=== PATIENT | male | born 1995 | race Caucasian/White ===

== ENCOUNTER 2016-08-08 21:39 | Emergency (ER) | payer OTHER ==
[2016-08-08 21:43] VITALS: TEMP 97.7
[2016-08-08] MEDS ORDERED: VANCOMYCIN HCL/NORMAL SALINE 250 ML IV ONE (21:51)
[2016-08-08] MEDS ORDERED: CEPHALEXIN 500 MG CAP PO ONE (21:52)
--- NOTE | 2016-08-08 21:55 | EDPHY ---
H & P Time Seen by Provider: 08/08/16 21:51 HPI/ROS: HPI:21-year-old male presents to emergency department with chief concern bilateral flank pain. Reports sudden onset of 4/10 bilateral flank pain. No aggravating or alleviating factors. Denies fever, chills, myalgias, shortness of breath, chest pain, nausea, vomiting, diarrhea, urinary symptoms, STI for history of STI, unusual penile discharge or burning. He skis and climbs. He climbed yesterday. He hiked the day before. no personal or family history of kidney stones. ROS:10 point review of systems is negative other than as stated in HPI Past Medical/Surgical History: Denies Social History: lives in [place], works for a [employer] Smoking Status: Never smoked Physical Exam: Vital signs stable, reviewed by me General: Awake, alert, calm, cooperative. No acute distress. Head: Normalocephalic. Atraumatic. EENT: PERRLA. EOMI. No pallor or injection. Anicteric. No nystagmus. No injection. Neck: Supple, nontender. No lymphadenopathy. Full range of motion. No meningismus. Respiratory: Breathing unlabored. Breath sounds equal bilaterally and clear to auscultation. No adventitious sounds. CV: Chest nontender, atraumatic. Heart rate regular. No murmur, distal pulses 2+ bilaterally. Brisk cap refill all extremities. GI: Abdomen soft, nontender. Bowel sounds normoactive and positive x4 quadrants. : No suprapubic tenderness. No CVA tenderness. Positive bilateral low flank pain. Neuro: Alert. Oriented x 3. Speech clear. Nonfocal cranial nerves throughout. Sensation intact all extremities. Skin: Skin warm, dry, intact. No rashes, abrasions, or lacerations. Skin turgor normal. Extremities: Full range of motion in all 4 extremities. Strength 5+ all extremities. Constitutional: Initial Vital Signs Temperature (C) 36.5 C 08/08/16 21:40 Heart Rate 86 08/08/16 21:40 Respiratory Rate 16 08/08/16 21:40 Blood Pressure 147/86 H 08/08/16 21:40 O2 Sat (%) 96 08/08/16 21:40 O2 Delivery Mode Room Air Allergies/Adverse Reactions: dae Allergy (Verified 08/08/16 21:40) Medical Decision Making - Diagnostics Imaging: CT Abdomen and Pelvis (Without Contrast) at 2257 hours History: Bilateral flank pain. Technique: Spiral images were acquired from the upper abdomen through the pelvis without intravenous or oral contrast which limits the study. Dose reduction techniques were utilized. Findings: Abdomen: Bilateral kidneys demonstrate no nephrolithiasis or hydronephrosis. Large amount of stool throughout the ascending and transverse colon and moderate stool in the rectosigmoid colon consistent with constipation. No hepatosplenomegaly or ascites. No pneumoperitoneum. Limited due to lack of oral and IV contrast. No small bowel distention. No lumbar compression fractures. Pelvis: No evidence of distal ureteral calculi, hydroureter or bladder calculi. Impression: 1. No nephrolithiasis or hydronephrosis. 2. Constipation. ED Course/Re-evaluation: 21-year-old gentleman presents to emergency department with bilateral low flank pain that onset yesterday. He has no urinary symptoms. He is just getting over a 5 day bout of flu. Urinalysis negative for evidence of infection or hematuria. CT abdomen pelvis to rule out perinephric abscess ordered as this patient is white count 12531. 2115: CT abdomen pelvis is negative for anything acute. Will have this patient follow up with primary care tomorrow for recheck. Differential Diagnosis: Differential diagnosis includes but is not limited to pyelonephritis, kidney stone, pneumonia, musculoskeletal discomfort - Data Points Laboratory Results: Laboratory Results 08/08/16 21:56 08/08/16 21:56 08/08/16 08/08/16 22:10 21:56 WBC 15.18 H 10^3/uL (3.80-9.50) RBC 5.38 10^6/uL (4.40-6.38) Hgb 14.6 g/dL (13.7-17.5) Hct 43.5 % (40.0-51.0) MCV 80.9 L fL (81.5-99.8) MCH 27.1 L pg (27.9-34.1) MCHC 33.6 g/dL (32.4-36.7) RDW 13.2 % (11.5-15.2) Plt Count 305 10^3/uL (150-400) MPV 10.0 fL (8.7-11.7) Neut % (Auto) 70.0 % (39.3-74.2) Lymph % (Auto) 18.2 % (15.0-45.0) [place] % (Auto) 8.7 % (4.5-13.0) Eos % (Auto) 2.2 % (0.6-7.6) Baso % (Auto) 0.5 % (0.3-1.7) Nucleat RBC Rel Count 0.0 % (0.0-0.2) Absolute Neuts (auto) 10.61 H 10^3/uL (1.70-6.50) Absolute Lymphs (auto) 2.77 10^3/uL (1.00-3.00) Absolute Monos (auto) 1.32 H 10^3/uL (0.30-0.80) Absolute Eos (auto) 0.34 10^3/uL (0.03-0.40) Absolute Basos (auto) 0.08 10^3/uL (0.02-0.10) Absolute Nucleated RBC 0.00 10^3/uL (0-0.01) Immature Gran % 0.4 % (0.0-1.1) Immature Gran # 0.06 10^3/uL (0.00-0.10) Sodium 145 H mEq/L (134-144) Potassium 4.0 mEq/L (3.5-5.2) Chloride 103 mEq/L (97-110) Carbon Dioxide 28 mEq/l (22-31) Anion Gap 14 mEq/L (8-16) BUN 15 mg/dL (7-23) Creatinine 1.1 mg/dL (0.7-1.3) Estimated GFR > 60 Glucose 118 H mg/dL (70-100) Calcium 9.7 mg/dL (8.5-10.4) Urine Color YELLOW Urine Appearance CLEAR Urine pH 7.0 (5.0-7.5) Ur Specific [place] 1.010 (1.002-1.030) Urine Protein NEGATIVE (NEGATIVE) Urine Ketones NEGATIVE (NEGATIVE) Urine Blood NEGATIVE (NEGATIVE) Urine Nitrate NEGATIVE (NEGATIVE) Urine Bilirubin NEGATIVE (NEGATIVE) Urine Urobilinogen NEGATIVE EU (0.2-1.0) Ur Leukocyte Esterase NEGATIVE (NEGATIVE) Urine Glucose NEGATIVE (NEGATIVE) Medications Given: Discontinued Medications Cephalexin (Keflex 500 Mg Prepack#4) 1 btl TAKEHOME EDNOW ONE Stop: 08/08/16 22:02 Last Admin: 08/08/16 22:09 Dose: Not Given Cephalexin HCl (Keflex) 500 mg PO EDNOW ONE PRN Reason: Protocol Stop: 08/08/16 21:53 Last Admin: 08/08/16 22:08 Dose: 500 mg Vancomycin/Sodium Chloride (Vancomycin 1 Gm (Premix)) 250 mls @ 250 mls/hr IV EDNOW ONE PRN Reason: Protocol Stop: 08/08/16 22:50 Last Admin: 08/08/16 22:09 Dose: Not Given Departure - Departure Disposition: Home, Routine, Self-Care Clinical Impression: Flank pain Condition: Good Instructions: Flank Pain (ED) Additional Instructions: Plan: Your urinalysis was negative for evidence of infection CT scan abdomen and pelvis are negative for any acute findings You may use 600 mg of ibuprofen every 6 hours for fever, inflammation, or pain. Always take ibuprofen with food and stay well hydrated while taking. Do not exceed the maximum allowable dose in a 24 hour period which is 2400 mg. Please follow up with primary care tomorrow for recheck without fail--When you call to schedule appointment, please let the office know you are an "ER follow up" appointment". Referrals: AXEL BEDOYA [Primary Care Provider] - As per Instructions
[2016-08-08] MEDS ORDERED: CEPHALEXIN 500MG PREPACK#4 BTL TAKEHOME ONE (22:01)
[2016-08-08 22:21] LABS: % IMMATURE GRANULYOCYTES 0.4 % (0.0-1.1); ABSOLUTE IMMATURE GRANULOCYTES 0.06 10^3/uL (0.00-0.10); ADD DIFF? NO; ADD MORPH? NO; ADD SCAN? NO; ATYPICAL LYMPHOCYTE FLAG 10 (0-99); FRAGMENT RBC FLAG 0 (0-99); HEMATOCRIT 43.5 % (40.0-51.0); HEMOGLOBIN 14.6 g/dL (13.7-17.5); LEFT SHIFT FLG 0 (0-99); LIPEMIA HEMOLYSIS FLAG 80 (0-99); MEAN CELL HEMOGLOBIN 27.1 pg (27.9-34.1); MEAN CELL HEMOGLOBIN CONCENTR. 33.6 g/dL (32.4-36.7); MEAN CELL VOLUME 80.9 fL (81.5-99.8); PLATELET CLUMPS FLAG 0 (0-99); PLATELET COUNT 305 10^3/uL (150-400); RED BLOOD CELL COUNT 5.38 10^6/uL (4.40-6.38); RED CELL DISTRIBUTION WIDTH 13.2 % (11.5-15.2)
[2016-08-08 22:26] LABS: COLOR YELLOW; LEUKOCYTE ESTERASE,URINE NEGATIVE (NEGATIVE); NITRITE,URINE NEGATIVE (NEGATIVE)
[2016-08-08 23:05] LABS: ANION GAP 14 mEq/L (8-16); CALCIUM 9.7 mg/dL (8.5-10.4); CARBON DIOXIDE 28 mEq/l (22-31); CHLORIDE 103 mEq/L (97-110); CREATININE 1.1 mg/dL (0.7-1.3); GLOMERULAR FILTRATION RATE > 60; GLUCOSE 118 mg/dL (70-100); SODIUM 145 mEq/L (134-144)
--- NOTE | 2016-08-08 23:26 | CT ---
CT Abdomen and Pelvis (Without Contrast) at 2257 hours History: Bilateral flank pain. Technique: Spiral images were acquired from the upper abdomen through the pelvis without intravenous or oral contrast which limits the study. Dose reduction techniques were utilized. Findings: Abdomen: Bilateral kidneys demonstrate no nephrolithiasis or hydronephrosis. Large amount of stool th roughout the ascending and transverse colon and moderate stool in the rectosigmoid colon consistent w ith constipation. No hepatosplenomegaly or ascites. No pneumoperitoneum. Limited due to lack of oral and IV contrast. No small bowel distention. No lumbar compression fractures. Pelvis: No evidence of distal ureteral calculi, hydroureter or bladder calculi. Impression: 1. No nephrolithiasis or hydronephrosis. 2. Constipation. Attention: This CT examination is specifically designed to evaluate patients who are clinically susp ected of having acute obstructive uropathy. This examination does not use radiographic contrast, and as such, provides only a limited evaluation of the abdomen, pelvis and retroperitoneum. If there is further clinical suspicion for pathological conditions other than obstructive uropathy, a complete C T evaluation of the abdomen and pelvis utilizing intravenous, oral, and rectal contrast should be con sidered. Findings and recommendations discussed with Emergency Department physician, Kathryn Nixon, RN-P at 2305 hour, today. Final report concurs with initial preliminary interpretation.
[2016-08-08 23:30] VITALS: BP 101/71; PULSE 84; RESP 18; O2SAT 95
== END 2016-08-08 23:29 | disposition home or self-care (01) ==
DX: R10.31 Right lower quadrant pain (principal); R10.32 Left lower quadrant pain; R10.11 Right upper quadrant pain; R10.12 Left upper quadrant pain
CPT/HCPCS: J3370